=== PATIENT | male | born 1940 ===

== ENCOUNTER 2017-06-13 08:36 | Day surgery (SDC) | payer MEDICARE ==
[2017-05-01 08:36] VITALS: BMI 30.9
[2017-06-13] MEDS ORDERED: Gentamicin 160 MG in Sodium Chloride 0.9% 100 ML IVPB ONE (09:40)
[2017-06-13] MEDS ORDERED: Lactated Ringer's 1,000 ML IV ONE ×2 (10:22→10:48)
[2017-06-13] MEDS ORDERED: Ciprofloxacin 400mg/200ml D5W 400 MG/200 ML BAG IVPB ONE (10:22)
[2017-06-13] MEDS ORDERED: Propofol 10 mg/ml Inj (20 ML) ONE (10:25)
[2017-06-13] MEDS ORDERED: Midazolam 2 MG/2 ML VIAL ONE (10:26)
[2017-06-13] MEDS ORDERED: Lidocaine Hydrochloride 5 ML INJ ONE (10:40)
--- NOTE | 2017-06-13 10:45 | PCM.SURG1 ---
Surgeon's Initial Post Op Note - Surgeon's Notes Surgeon: Uday Knife Glazer: robb Type of Anesthesia: General Mask Anesthesia Administered By: staff Pre-Operative Diagnosis: BPH/HX BT Operative Findings: BT Post-Operative Diagnosis: BT Operation Performed: CYSTO BX fulg. Specimen/Specimens Removed: bX Estimated Blood Loss: EBL {In ML}: 0 Blood Products Given: N/A Drains Used: No Drains Post-Op Condition: Good Date of Surgery/Procedure: 06/13/17 Time of Surgery/Procedure: 10:44
[2017-06-13] MEDS ORDERED: HYDROmorphone 0.5 mg/0.5 ml ISec IVP PRN (10:50)
[2017-06-13 12:45] VITALS: RESP 16
[2017-06-13 13:27] VITALS: BP 148/56; PULSE 60; TEMP 97.3; O2SAT 97
--- NOTE | 2017-06-13 21:01 | OP ---
PROCEDURE DATE: 06/13/2017 PREOPERATIVE DIAGNOSIS: History of bladder tumor. 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 PROCEDURE: Cystopanendoscopy, biopsy and fulguration. DESCRIPTION OF PROCEDURE: As follows; prior to the procedure, detailed informed consent was obtained. The patient was apprised of all risks and complications of the procedure, alternate ways of following bladder tumor and he consented to this procedure and is willing to accept the risks. He was brought into room after receiving prophylactic antibiotics. He was draped and prepped in the usual manner. He was then cystoscoped with a #21 Storz panendoscope. The pendulous and membranous urethra was normal. The prostatic urethra showed evidence of previous resection or ablation. There was some residual prostatic tissue on the right side of the prostatic fossa. There were noted be 2 exophytic lesions in the prostatic fossa in the area of previous resection. These were biopsied and fulgurated. The patient tolerated this well. The biopsy will determine further therapy. The patient may need removal of this right-sided lesion in the future. Gilbert Frye MD
== END 2017-06-13 13:15 | disposition home or self-care (01) ==
LOC: C.SDS 08:36
PROVIDERS: ATTEND Urology
DX: N30.90 Cystitis, unspecified without hematuria (principal)
CPT/HCPCS: 52204; 82948; 88305; J0744; J1580; J7120

== ENCOUNTER 2017-10-28 19:12 | Emergency (ER) | payer MEDICARE, MEDICAID, OTHER ==
[2017-10-28 19:12] VITALS: BMI 30.9
[2017-10-28 19:38] VITALS: RESP 20
--- NOTE | 2017-10-28 19:59 | C.PDOC ---
History Of Present Illness 76 year old male presents to the emergency room for 3 day history of fever, cough, congestion, and sore throat. Reports cough is productive of white sputum. Has been taking [id number] cough and cold medications without significant improvement. Denies any chest pain or shortness of breath. PMD: Dr. Jarred Ramos Time Seen by Provider: 10/28/17 19:47 Chief Complaint (Nursing): Flu-like Symptoms History Per: Patient History/Exam Limitations: no limitations Onset/Duration Of Symptoms: Days (x3) Current Symptoms Are (Timing): Still Present Past Medical History Reviewed: Historical Data, Nursing Documentation, Vital Signs Vital Signs: Last Vital Signs Temp 100.5 F H 10/28/17 20:24 Pulse 88 10/28/17 20:24 Resp 20 10/28/17 20:24 BP 150/87 10/28/17 20:24 Pulse Ox 97 10/28/17 20:24 - Medical History PMH: Arthritis, Benign Prostatic Hyperplasia, GERD, HTN, Hypercholesterolemia, Hyperlipidemia, TIA (04/26/2015) Denies: Chronic Kidney Disease Surgical History: Endoscopy - [facility] Procedures CYSTOSCOPY NEC (10/01/13) ENDOSCP EXCISN OR DESTR OF LESION OR TIS URETHRA (03/27/13) OTH TRANSURETHRAL PROSTATECTOMY (03/12/13) TU BLADDER CLEARANCE (03/27/13) TU DESTRUC BLADD LES NEC (10/01/13) Family History: States: Unknown Family Hx - Social History Hx Tobacco Use: No Hx Alcohol Use: Yes (last drink 20yrs ago) Hx Substance Use: No - Immunization History Hx Influenza Vaccination: Yes Hx Pneumococcal Vaccination: Yes Review Of Systems Constitutional: Positive for: Fever ENT: Positive for: Nose Congestion, Throat Pain Cardiovascular: Negative for: Chest Pain Respiratory: Positive for: Cough, Sputum (white). Negative for: Shortness of Breath Physical Exam - Physical Exam Appears: Non-toxic, No Acute Distress Skin: Normal Color, Warm, Dry Head: Atraumatic, Normacephalic Eye(s): bilateral: Normal Inspection, PERRL, EOMI Ear(s): Bilateral: Normal Oral Mucosa: Moist Throat: Erythema (mild), No Exudate Neck: Normal ROM, Supple Chest: Symmetrical, No Tenderness Cardiovascular: Rhythm Regular Respiratory: Normal Breath Sounds, No Accessory Muscle Use, No Wheezing Gastrointestinal/Abdominal: Normal Exam, Soft, No Tenderness Back: Normal Inspection Extremity: Normal ROM, No Deformity Neurological/Psych: Oriented x3, Normal Speech ED Course And Treatment O2 Sat by Pulse Oximetry: 96 (RA) Pulse Ox Interpretation: Normal Medical Decision Making Medical Decision Making: Initial Impression: 76 year old with cough and congestion Plan --Tylenol 650 mg --Chest x-ray 2004 CXR reviewed showing normal heart size. Mild right hilar prominence. No focal consolidation, pleural effusion, or pneumothorax. will order Zithromax PO Patient remained afebrile in no acute respiratory distress. Vital signs stable. Patient feels comfortable going home and will be discharged. Patient given follow up instructions. Instructed to return to ER if symptoms worsen or new symptoms arise. Disposition Counseled Patient/Family Regarding: Diagnosis, Need For Followup, Rx Given - Disposition Referrals: Jarred Ramos MD [Medical Doctor] - Disposition: HOME/ ROUTINE Disposition Time: 20:20 Condition: GOOD Additional Instructions: Your prescription was sent to [facility] pharmacy Take antibiotic daily and take cough medicine as needed Take Tylenol or Motrin alternating every 4-6 hours for Fever 100.4F or higher. Rest and drink plenty of fluids. Follow up with your primary medical doctor or clinic in 2-5 days for further evaluation. Return to the emergency department at any time if symptoms persist or worsen. Brito receta fue enviada a la farmacia [facility] [place] antibiticos a diario y tome medicamentos para la tos segn sea necesario [place] Tylenol o Motrin alternando cada 4-6 horas para Fiebre 100.4F o superior. Descansa y precious muchos lquidos. Mckay un seguimiento con brito mdico primario o clnica en 2-5 hdez para marlena evaluacin adicional. Regrese al departamento de emergencia en cualquier momento si los sntomas persisten o empeoran. 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 - Scribe Statement The provider has reviewed the documentation as recorded by the Scribe (Harmony Glez) All medical record entries made by the Scribe were at my direction and personally dictated by me. I have reviewed the chart and agree that the record accurately reflects my personal performance of the history, physical exam, medical decision making, and the department course for this patient. I have also personally directed, reviewed, and agree with the discharge instructions and disposition.
[2017-10-28 20:28] VITALS: BP 150/87; PULSE 88; TEMP 100.5
[2017-10-28 22:23] VITALS: O2SAT 96
--- NOTE | 2017-10-29 10:51 | RAD ---
HISTORY: cough COMPARISON: Comparison chest 10/29/2015 TECHNIQUE: Chest PA and lateral FINDINGS: LUNGS: Bibasilar atelectasis versus developing lower lobe infiltrates. PLEURA: No significant pleural effusion identified. No pneumothorax apparent. CARDIOVASCULAR: Cardiomegaly. OSSEOUS STRUCTURES: Mild multilevel degenerative spondylosis of the thoracic spine VISUALIZED UPPER ABDOMEN: Normal. OTHER FINDINGS: None. IMPRESSION: Bibasilar atelectasis versus developing lower lobe infiltrates. Follow-up radiographs following treatment recommended to assess resolution. Note that this report was placed in PA review folder for followup.
== END 2017-10-28 20:25 | disposition home or self-care (01) ==
LOC: C.ER 19:12
DX: J40 Bronchitis, not specified as acute or chronic (principal)

== ENCOUNTER 2018-03-08 20:21 | Inpatient (IN) | payer MEDICARE, OTHER ==
[2018-03-08 20:22] VITALS: BMI 31.2
[2018-03-08] MEDS ORDERED: Sodium Chloride 0.9% 1,000 ML IV ONE (21:26)
[2018-03-08] MEDS ORDERED: cefTRIAXone IV 1 gm in Dextros 50 ML IVPB ONE ×2 (21:29→21:45)
--- NOTE | 2018-03-08 21:41 | C.PDOC ---
History Of Present Illness 77 year old male with a Hx of diabetes presents to the ER with a complaint of soft tissue swelling and pain to the left lower leg. Patient states he was bitten by a dog 2 weeks ago and has not seen improvement of wound despite being on antibiotics. Denies fever, weakness, or numbness. Chief Complaint (Nursing): Abnormal Skin Integrity History Per: Patient History/Exam Limitations: no limitations Onset/Duration Of Symptoms: Days Current Symptoms Are (Timing): Still Present Location Of Injury: Left: Leg Quality Of Symptoms: Swollen Recent travel outside of the [place]: No Past Medical History Reviewed: Historical Data, Nursing Documentation, Vital Signs Vital Signs: Last Vital Signs Temp 98.4 F 03/08/18 21:07 Pulse 64 03/08/18 23:19 Resp 18 03/08/18 23:19 BP 130/56 L 03/08/18 23:19 Pulse Ox 97 03/08/18 23:19 - Medical History PMH: Arthritis, Benign Prostatic Hyperplasia, GERD, HTN, Hypercholesterolemia ( Hyperlipidermia), Hyperlipidemia, TIA (04/26/2015) Surgical History: Endoscopy - [facility] Procedures CYSTOSCOPY NEC (10/01/13) ENDOSCP EXCISN OR DESTR OF LESION OR TIS URETHRA (03/27/13) OTH TRANSURETHRAL PROSTATECTOMY (03/12/13) TU BLADDER CLEARANCE (03/27/13) TU DESTRUC BLADD LES NEC (10/01/13) Family History: States: No Known Family Hx - Social History Hx Tobacco Use: No Hx Alcohol Use: Yes (last drink 20yrs ago) Hx Substance Use: No - Immunization History Hx Influenza Vaccination: Yes Hx Pneumococcal Vaccination: Yes Review Of Systems Constitutional: Negative for: Fever, Chills Cardiovascular: Negative for: Chest Pain, Palpitations Respiratory: Negative for: Cough, Shortness of Breath Skin: Positive for: Other (Soft tissue swelling) Neurological: Negative for: Weakness, Numbness Physical Exam - Physical Exam Appears: Non-toxic Skin: Warm, Dry Head: Atraumatic, Normacephalic Eye(s): bilateral: Normal Inspection Oral Mucosa: Moist Neck: Normal, Supple Chest: Symmetrical, No Tenderness Cardiovascular: Rhythm Regular Respiratory: Normal Breath Sounds, No Rales, No Rhonchi, No Wheezing Gastrointestinal/Abdominal: Soft, No Tenderness Extremity: Capillary Refill (<2 seconds), Other (8x3cm area of soft tissue swelling to distal aspect of left lower leg, tender to touch, no fluctuant) Pulses: Left Dorsalis Pedis: Normal, Right Dorsalis Pedis: Normal Neurological/Psych: Oriented x3, Normal Speech, Normal Motor, Normal Sensation Gait: Steady ED Course And Treatment - Laboratory Results Result Diagrams: 03/08/18 21:38 03/08/18 21:38 O2 Sat by Pulse Oximetry: 97 (Room air) Pulse Ox Interpretation: Normal Progress Note: CT left lower extremity and blood work ordered. IV fluids and rocephin administered. Disposition Discussed With Dr.: Minesh Linder Jr. Doctor Will See Patient In The: Hospital Counseled Patient/Family Regarding: Diagnosis - Disposition Disposition: HOSPITALIZED Disposition Time: 00:06 Condition: STABLE Forms: [facility] (Zimbabwean) - Clinical Impression Clinical Impression: Cellulitis, Diabetes mellitus - Scribe Statement The provider has reviewed the documentation as recorded by the Scribamelia Dorsey All medical record entries made by the Scribe were at my direction and personally dictated by me. I have reviewed the chart and agree that the record accurately reflects my personal performance of the history, physical exam, medical decision making, and the department course for this patient. I have also personally directed, reviewed, and agree with the discharge instructions and disposition.
[2018-03-08 21:42] LABS: BASO # 0.1 K/uL (0.0-0.2); BASO % 1.1 % (0.0-2.0); EOS # 0.1 K/uL (0.0-0.7); EOS % 2.7 % (0.0-4.0); HEMOGLOBIN 13.7 g/dL (12.0-18.0); LYMPH # 1.8 K/uL (1.0-4.3); LYMPH % 32.8 % (20.0-40.0); MEAN CELL VOLUME 91.6 fL (80.0-94.0); MEAN CORPUSCULAR HEMOGLOBIN 31.5 pg (27.0-31.0); MEAN CORPUSCULAR HGB CONC 34.4 g/dL (33.0-37.0); MEAN PLATELET VOLUME 8.7 fL (7.2-11.7); MONO # 0.6 K/uL (0.0-0.8); MONO % 10.8 % (0.0-10.0); NEUT # 2.8 K/uL (1.8-7.0); NEUT % 52.6 % (50.0-75.0); RBC 4.36 Mil/uL (4.40-5.90); RED CELL DISTRIBUTION WIDTH 13.8 % (11.5-14.5); WHITE BLOOD COUNT 5.4 K/uL (4.8-10.8)
[2018-03-08] MEDS ORDERED: Sodium Chloride 0.9% 1,000 ML ONE (21:42)
[2018-03-08 22:04] LABS: ALB/GLOB RATIO 1.1 (1.0-2.1); ALBUMIN 4.2 g/dL (3.5-5.0); ALT/SGPT 33 U/L (21-72); AST/SGOT 25 U/L (17-59); BLOOD UREA NITROGEN 24 mg/dL (9-20); CALCIUM 9.7 mg/dl (8.6-10.4); GFR AFRICAN-AMERICAN > 60; GFR NON-AFRICAN AMERICAN > 60
[2018-03-08] MEDS ORDERED: Absorbable Gelatin Sponge Size 12-7 ONE (22:31)
--- NOTE | 2018-03-09 01:14 | CP.PCM.HP ---
History of Present Illness - History of Present Illness History of Present Illness: CC dog bite cellulitis HPI 77M presents with 2 weeks of redness after being bit by a house trained dog in [place]. Patient states he does not have fever, chills, nausea, vomiting, diarrhea. Patient denies any purulence, drainage. Patient states it is not painful. Patient was taking keflex by his PMD, but it was not working, the redness was getting worse, so patient came to emergency room. PMH diabetic, htn Surgery: none Social: denies smoking, etoh, illicit drug use Present on Admission - Present on Admission Any Indicators Present on Admission: No History of DVT/PE: No History of Uncontrolled Diabetes: No Urinary Catheter: No Decubitus Ulcer Present: No Review of Systems - Review of Systems All systems: reviewed and no additional remarkable complaints except Past Patient History - Infectious Disease Hx of Infectious Diseases: None - Past Medical History & Family History Past Medical History?: Yes - Past Social History Smoking Status: Never Smoked Alcohol: None Drugs: Denies - CARDIAC Hx Hypercholesterolemia: Yes (Hyperlipidermia) Hx Hypertension: Yes - PULMONARY Hx Respiratory Disorders: No - NEUROLOGICAL Hx Transient Ischemic Attacks (TIA): Yes (04/26/2015) - HEENT Hx HEENT Problems: No - RENAL Hx Chronic Kidney Disease: No - ENDOCRINE/METABOLIC Hx Endocrine Disorders: Yes Hx Diabetes Mellitus Type 2: Yes - HEMATOLOGICAL/ONCOLOGICAL Hx Blood Disorders: Yes Hx Cancer: Yes (TRANSITIONAL CELL CARCINOMA (BLADDER)) - INTEGUMENTARY Hx Dermatological Problems: No - MUSCULOSKELETAL/RHEUMATOLOGICAL Hx Arthritis: Yes - GASTROINTESTINAL Hx Gastrointestinal Disorders: Yes Hx Gastroesophageal Reflux: Yes Hx Hemorrhoids: Yes - GENITOURINARY/GYNECOLOGICAL Hx Genitourinary Disorders: Yes Hx Prostate Problems: Yes Other/Comment: HX: NEOPLASM OF BLADDER.(TRANSITIONAL CELL CARCINOMA) - PSYCHIATRIC Hx Substance Use: No - SURGICAL HISTORY Hx Surgeries: Yes Other/Comment: HX:CYSTO. HX:TURP - ANESTHESIA Hx Anesthesia: Yes Hx Anesthesia Reactions: No Hx Malignant Hyperthermia: No Meds Allergies/Adverse Reactions: Allergies Allergy/AdvReac Type Severity Reaction Status Date / Time No Known Allergies Allergy Verified 10/28/17 19:38 Physical Exam - Constitutional Appears: Non-toxic, No Acute Distress - Head Exam Head Exam: ATRAUMATIC, NORMAL INSPECTION, NORMOCEPHALIC - Eye Exam Eye Exam: EOMI, Normal appearance Pupil Exam: NORMAL ACCOMODATION, PERRL - ENT Exam ENT Exam: Mucous Membranes Moist, Normal Exam - Neck Exam Neck exam: Positive for: Normal Inspection - Respiratory Exam Respiratory Exam: Clear to Auscultation Bilateral, NORMAL BREATHING PATTERN. absent: Accessory Muscle Use - Cardiovascular Exam Cardiovascular Exam: REGULAR RHYTHM, +S1, +S2. absent: Bradycardia, Tachycardia - Extremities Exam Extremities exam: Positive for: full ROM. Negative for: pedal edema Additional comments: sharply demarcated erythema. eschar center no purulence, no weeping wound - Back Exam Back exam: FULL ROM. absent: CVA tenderness (L), CVA tenderness (R) - Neurological Exam Neurological exam: Alert, CN II-XII Intact, Oriented x3, Reflexes Normal - Psychiatric Exam Psychiatric exam: Normal Affect, Normal Mood - Skin Skin Exam: Dry, Normal Color, Warm Results - Vital Signs Recent Vital Signs: Last Vital Signs Temp 98.2 F 03/09/18 00:55 Pulse 60 03/09/18 00:55 Resp 18 03/09/18 00:55 BP 144/61 03/09/18 00:55 Pulse Ox 98 03/09/18 00:55 - Labs Result Diagrams: 03/08/18 21:38 03/08/18 21:38 Labs: Laboratory Results - last 24 hr 03/08/18 03/08/18 03/08/18 21:19 21:38 21:38 WBC 5.4 RBC 4.36 L Hgb 13.7 Hct 39.9 MCV 91.6 MCH 31.5 H MCHC 34.4 RDW 13.8 Plt Count 196 MPV 8.7 Neut % (Auto) 52.6 Lymph % (Auto) 32.8 [place] % (Auto) 10.8 H Eos % (Auto) 2.7 Baso % (Auto) 1.1 Neut # (Auto) 2.8 Lymph # (Auto) 1.8 [place] # (Auto) 0.6 Eos # (Auto) 0.1 Baso # (Auto) 0.1 Sodium 144 Potassium 4.1 Chloride 103 Carbon Dioxide 28 Anion Gap 17 BUN 24 H Creatinine 0.8 Est GFR ( Amer) > 60 Est GFR (Non-Af Amer) > 60 POC Glucose (mg/dL) 115 H Random Glucose 110 Calcium 9.7 Total Bilirubin 0.4 AST 25 ALT 33 Alkaline Phosphatase 135 H Total Protein 8.0 Albumin 4.2 Globulin 3.8 Albumin/Globulin Ratio 1.1 Assessment & Plan - Assessment and Plan (Free Text) Assessment: dog bite/cellulitis f/u CT soft tissue Augmentin 875 PO BID LR @ 150cc/hr DM accucheck achs continued home meds: metformin Prophylaxis Protonix 40 mg IVP QD Anayeli Cavanaugh DO PGY1 - Date & Time Date: 03/09/18 Time: 01:15
[2018-03-09] MEDS ORDERED: Dextrose 50% SYRINGE Inj (50 ml) IV PRN (01:22)
[2018-03-09] MEDS ORDERED: Glucagon Recombinant 1 mg Inj IM PRN (01:22)
[2018-03-09] MEDS: Lactated Ringer's 1,000 ML IV SCH ×2 (06:47→08:36)
[2018-03-09] MEDS ORDERED: Amoxicillin-Clav 875-125 mg Tab PO SCH (09:00)
[2018-03-09] MEDS ORDERED: Pantoprazole 40 mg EC Tab PO SCH (10:00)
[2018-03-09] MEDS ORDERED: Enoxaparin 40 mg Syringe SC SCH (10:00)
[2018-03-09] MEDS: Saccharomyces Boulardi 250 mg Cap PO SCH ×3 (10:59→17:22)
--- NOTE | 2018-03-09 11:55 | CT ---
PROCEDURE: CT left lower extremity HISTORY: infected wound -left lower leg/ r/o abscess COMPARISON: Not available TECHNIQUE: 2.5 mm contiguous axial sections were acquired through the left lower extremity, from the knee to the ankle. Sagittal and coronal images were reformatted from the axial scan. FINDINGS: In the region of concern along the lateral aspect of the mid tibia/fibula, as indicated by a radiopaque cutaneous marker, there is mild cutaneous thickening, nonspecific. There is mild stranding of the subcutaneous soft tissues. The findings may reflect a mild cellulitis. Please correlate clinically. There is no evidence of abscess. There is no mass or fluid collection. The underlying muscles are unremarkable in appearance. There is no osseous abnormality appreciated. There is no periosteal reaction or osseous erosion. IMPRESSION: No evidence of abscess. Possible cellulitis. No additional abnormality. Preliminary interpretation of this examination was reported by [facility] at 11:31 p.m. on 03/08/2018. There is concurrence of this report with the preliminary interpretation.
[2018-03-09 15:51] VITALS: BP 136/66; PULSE 66; RESP 20; TEMP 97.4; O2SAT 96
--- NOTE | 2018-03-09 18:51 | CP.PCM.DIS ---
Provider - Provider Date of Admission: 03/09/18 00:07 Attending physician: Minesh Linder Jr, MD Consults: none Time Spent in preparation of Discharge (in minutes): 45 Hospital Course - Lab Results Lab Results: Most Recent Lab Values WBC 5.4 K/uL (4.8-10.8) 03/08/18 21:38 RBC 4.36 Mil/uL (4.40-5.90) L 03/08/18 21:38 Hgb 13.7 g/dL (12.0-18.0) 03/08/18 21:38 Hct 39.9 % (35.0-51.0) 03/08/18 21:38 MCV 91.6 fL (80.0-94.0) 03/08/18 21:38 MCH 31.5 pg (27.0-31.0) H 03/08/18 21:38 MCHC 34.4 g/dL (33.0-37.0) 03/08/18 21:38 RDW 13.8 % (11.5-14.5) 03/08/18 21:38 Plt Count 196 K/uL (130-400) 03/08/18 21:38 MPV 8.7 fL (7.2-11.7) 03/08/18 21:38 Neut % (Auto) 52.6 % (50.0-75.0) 03/08/18 21:38 Lymph % (Auto) 32.8 % (20.0-40.0) 03/08/18 21:38 Archer % (Auto) 10.8 % (0.0-10.0) H 03/08/18 21:38 Eos % (Auto) 2.7 % (0.0-4.0) 03/08/18 21:38 Baso % (Auto) 1.1 % (0.0-2.0) 03/08/18 21:38 Neut # (Auto) 2.8 K/uL (1.8-7.0) 03/08/18 21:38 Lymph # (Auto) 1.8 K/uL (1.0-4.3) 03/08/18 21:38 Archer # (Auto) 0.6 K/uL (0.0-0.8) 03/08/18 21:38 Eos # (Auto) 0.1 K/uL (0.0-0.7) 03/08/18 21:38 Baso # (Auto) 0.1 K/uL (0.0-0.2) 03/08/18 21:38 Sodium 144 mmol/L (132-148) 03/08/18 21:38 Potassium 4.1 mmol/L (3.6-5.2) 03/08/18 21:38 Chloride 103 mmol/L (98-107) 03/08/18 21:38 Carbon Dioxide 28 mmol/L (22-30) 03/08/18 21:38 Anion Gap 17 (10-20) 03/08/18 21:38 BUN 24 mg/dL (9-20) H 03/08/18 21:38 Creatinine 0.8 mg/dL (0.8-1.5) 03/08/18 21:38 Est GFR ( Amer) > 60 03/08/18 21:38 Est GFR (Non-Af Amer) > 60 03/08/18 21:38 POC Glucose (mg/dL) 109 mg/dL (65-110) 03/09/18 16:13 Random Glucose 110 mg/dL (75-110) 03/08/18 21:38 Hemoglobin A1c 6.6 % (4.2-6.5) H 03/09/18 11:11 Calcium 9.7 mg/dl (8.6-10.4) 03/08/18 21:38 Total Bilirubin 0.4 mg/dL (0.2-1.3) 03/08/18 21:38 AST 25 U/L (17-59) 03/08/18 21:38 ALT 33 U/L (21-72) 03/08/18 21:38 Alkaline Phosphatase 135 U/L (38-126) H 03/08/18 21:38 Total Protein 8.0 g/dL (6.3-8.3) 03/08/18 21:38 Albumin 4.2 g/dL (3.5-5.0) 03/08/18 21:38 Globulin 3.8 gm/dL (2.2-3.9) 03/08/18 21:38 Albumin/Globulin Ratio 1.1 (1.0-2.1) 03/08/18 21:38 - Hospital Course Hospital Course: On Admission: 77M presents with 2 weeks of redness after being bit by a house trained dog in [place]. Patient states he does not have fever, chills, nausea, vomiting, diarrhea. Patient denies any purulence, drainage. Patient states it is not painful. Patient was taking keflex by his PMD, but it was not working, the redness was getting worse, so patient came to emergency room. Hospital Course: Patient was treated with PO Augmentin. No pain at the site. LE CT did not show any collection. Dog was confirmed no rabies. Tetanus up to date. Patient discharged with 10 days of PO augmentin Discharge Exam - Head Exam Head Exam: ATRAUMATIC, NORMAL INSPECTION, NORMOCEPHALIC - Eye Exam Eye Exam: EOMI, Normal appearance, PERRL Pupil Exam: NORMAL ACCOMODATION, PERRL - Respiratory Exam Respiratory Exam: NORMAL BREATHING PATTERN, UNREMARKABLE - Cardiovascular Exam Cardiovascular Exam: REGULAR RHYTHM. absent: Tachycardia - GI/Abdominal Exam GI & Abdominal Exam: Normal Bowel Sounds, Soft, Unremarkable. absent: Distended , Tenderness - Extremities Exam Additional comments: On lateral portion of lower left leg is small area of erythema. No pain or increased warmth. No fluctuance. - Neurological Exam Neurological exam: Alert, CN II-XII Intact, Normal Gait, Oriented x3, Reflexes Normal - Psychiatric Exam Psychiatric exam: Normal Affect, Normal Mood - Skin Skin Exam: Dry, Intact, Normal Color, Warm Discharge Plan - Discharge Medications Prescriptions: Amoxicillin/Clavulanate [Augmentin 875 MG-125 MG Tab] 1 tab PO Q12H #20 tab Saccharomyces Boulardi [Florastor] 250 mg PO BID 20 Days cap - Follow Up Plan Condition: STABLE Disposition: HOME/ ROUTINE Instructions: Saccharomyces boulardii, Carbohydrate Counting Diet, Diabetes Diet , Cellulitis (Skin Infection), Adult (DC), Amoxicillin and Clavulanate, Cellulitis (DC), Cellulitis (GEN) Additional Instructions: Please follow up with your regular doctor in 7-10 days. Please continue to take your home medications. Please take Augmentin 875 two times per day with breakfast and dinner for 2 days. Please take Floraster 2 hours after breakfast and 2 hours before dinner for 20 days. Please come back to the ED if symptoms return. Referrals: Minesh Linder Jr., MD [Medical Doctor] -
== END 2018-03-09 18:23 | disposition home or self-care (01) | DRG 603 ==
LOC: C.ER 20:21 → C.9E 03-09 00:07 → C.6T 03-09 00:34
PROVIDERS: ADMIT Internal Medicine; ATTEND Internal Medicine
DX: L03.116 Cellulitis of left lower limb (principal); E78.5 Hyperlipidemia, unspecified; E78.00 Pure hypercholesterolemia, unspecified; I10 Essential (primary) hypertension; N40.0 Benign prostatic hyperplasia without lower urinary tract symptoms; Z85.51 Personal history of malignant neoplasm of bladder; Z86.73 Personal history of transient ischemic attack (TIA), and cerebral infarction without residual deficits; E11.9 Type 2 diabetes mellitus without complications; Z79.4 Long term (current) use of insulin

== ENCOUNTER 2018-04-15 07:32 | Emergency (ER) | payer MEDICARE, OTHER ==
[2018-04-15 07:32] VITALS: BMI 31.2
[2018-04-15 07:43] VITALS: O2SAT 99
--- NOTE | 2018-04-15 07:56 | C.PDOC ---
History Of Present Illness 77 year old male presents to ED for evaluation of sore throat for the last 2 days. +dry cough, runny nose. Denies history of asthma, or smoking. Denies fever , chest pain, shortness of breath, or dyspnea on exertion. SORE THROAT X 2 DAYS. NO FEVER. +DRY COUGH, RUNNY NOSE. DENIES HO ASTHMA, SMOKING. NO CP, SOB/VALERA EXAM NARD HEENT THROAT CLEAR; NOSE CLEAR LUNGS CTA B/L NO W/R/R Time Seen by Provider: 04/15/18 07:50 Chief Complaint (Nursing): Cough, Cold, Congestion History Per: Patient History/Exam Limitations: no limitations Onset/Duration Of Symptoms: Days Current Symptoms Are (Timing): Still Present Past Medical History Reviewed: Historical Data, Nursing Documentation, Vital Signs Vital Signs: Last Vital Signs Temp 98.3 F 04/15/18 07:38 Pulse 68 04/15/18 07:38 Resp 18 04/15/18 07:38 BP 154/69 H 04/15/18 07:38 Pulse Ox 99 04/15/18 08:30 - Medical History PMH: Arthritis, Benign Prostatic Hyperplasia, GERD, HTN, Hypercholesterolemia ( Hyperlipidermia), Hyperlipidemia, TIA (04/26/2015) Denies: Chronic Kidney Disease Surgical History: Endoscopy - [facility] Procedures CYSTOSCOPY NEC (10/01/13) ENDOSCP EXCISN OR DESTR OF LESION OR TIS URETHRA (03/27/13) OTH TRANSURETHRAL PROSTATECTOMY (03/12/13) TU BLADDER CLEARANCE (03/27/13) TU DESTRUC BLADD LES NEC (10/01/13) Family History: States: Unknown Family Hx - Social History Hx Tobacco Use: No Hx Alcohol Use: No Hx Substance Use: No - Immunization History Hx Influenza Vaccination: Yes Hx Pneumococcal Vaccination: Yes Review Of Systems Except As Marked, All Systems Reviewed And Found Negative. Constitutional: Negative for: Fever, Chills ENT: Positive for: Nose Discharge (runny nose), Throat Pain. Negative for: Ear Pain Cardiovascular: Negative for: Chest Pain, Palpitations Respiratory: Positive for: Cough. Negative for: Shortness of Breath, SOB with Excertion Physical Exam - Physical Exam Appears: Non-toxic, No Acute Distress Skin: Normal Color, Warm, Dry Head: Atraumatic, Normacephalic Eye(s): bilateral: Normal Inspection, PERRL, EOMI Ear(s): Bilateral: Normal Nose: Normal, No Discharge Oral Mucosa: Moist Tongue: Normal Appearing Lips: Normal Appearing Throat: Normal, No Erythema, No Exudate, No Drooling Neck: Normal ROM, Supple Cardiovascular: Rhythm Regular, No Murmur Respiratory: Normal Breath Sounds, No Rales, No Rhonchi, No Wheezing Gastrointestinal/Abdominal: Soft, No Tenderness Extremity: Normal ROM Neurological/Psych: Oriented x3, Normal Speech ED Course And Treatment O2 Sat by Pulse Oximetry: 99 (RA) Pulse Ox Interpretation: Normal - Radiology CXR: Interpreted by Me CXR Interpretation: Yes: Infiltrates (?R SIDED INFIL) Medical Decision Making Medical Decision Making: Plan: CXR Motrin Tylenol Tessalon Perles Disposition Counseled Patient/Family Regarding: Studies Performed, Diagnosis, Need For Followup, Rx Given - Disposition Referrals: YOUR,PMD [Other] Disposition: HOME/ ROUTINE Disposition Time: 08:48 Condition: GOOD Prescriptions: Azithromycin 250 mg PO DAILY #6 tab Benzonatate [Tessalon Perles] 200 mg PO TID PRN #15 sgl PRN Reason: Cough Ibuprofen [Motrin] 600 mg PO Q6 #30 tab Instructions: Acute Bronchitis, Adult (DC) Forms: [employer] (Bahamian) Print Language: JAMAICAN - Clinical Impression Clinical Impression: Bronchitis - Scribe Statement The provider has reviewed the documentation as recorded by the Scribe KP All medical record entries made by the Scribe were at my direction and personally dictated by me. I have reviewed the chart and agree that the record accurately reflects my personal performance of the history, physical exam, medical decision making, and the department course for this patient. I have also personally directed, reviewed, and agree with the discharge instructions and disposition.
[2018-04-15 09:24] VITALS: BP 145/70; PULSE 72; RESP 16; TEMP 98
--- NOTE | 2018-04-15 09:51 | RAD ---
Date of service: 04/15/2018 HISTORY: COUGH COMPARISON: Chest radiographs 10/28/2017. TECHNIQUE: Chest PA and lateral FINDINGS: LUNGS: Mild mammillation right hemidiaphragm is reiterated. Mildly coarsened bronchovascular markings are stable at the medial bilateral bases. No interval acute pulmonary disease appreciated nevertheless. PLEURA: No significant pleural effusion identified. No pneumothorax apparent. CARDIOVASCULAR: Stable cardiomegaly. No pulmonary vascular congestion. OSSEOUS STRUCTURES: No significant abnormalities. VISUALIZED UPPER ABDOMEN: Normal. OTHER FINDINGS: None. IMPRESSION: Stable cardiomegaly. No acute cardiopulmonary disease appreciated.
== END 2018-04-15 09:23 | disposition home or self-care (01) ==
LOC: C.ER 07:32
DX: J40 Bronchitis, not specified as acute or chronic (principal)

== ENCOUNTER 2018-07-12 08:08 | Emergency (ER) | payer MEDICARE, OTHER ==
[2018-07-12 08:17] VITALS: BMI 33.5
[2018-07-12 08:21] VITALS: BP 136/63; PULSE 61; RESP 17; TEMP 98.5; O2SAT 99
--- NOTE | 2018-07-12 08:40 | C.PDOC ---
History Of Present Illness 77 y/o male presents to the ED complaining of 3 days of pain to right posterior hip area. [place] he pulled a muscle when taking his shoes off 3 days ago. Pain is described as digitally and positionally reproducible. Otherwise he denies any abdominal pain, nausea, vomiting, fever, chills, numbness, tingling, or extremity weakness. Time Seen by Provider: 07/12/18 08:28 Chief Complaint (Nursing): Back Pain History Per: Patient History/Exam Limitations: no limitations Onset/Duration Of Symptoms: Days Current Symptoms Are (Timing): Still Present Associated Symptoms: None Exacerbating Factor(s): Movement Past Medical History Reviewed: Historical Data, Nursing Documentation, Vital Signs Vital Signs: Last Vital Signs Temp 98.5 F 07/12/18 08:15 Pulse 61 07/12/18 08:15 Resp 17 07/12/18 08:15 BP 136/63 07/12/18 08:15 Pulse Ox 99 07/12/18 08:15 - Medical History PMH: Arthritis, Benign Prostatic Hyperplasia, GERD, HTN, Hypercholesterolemia (Hyperlipidermia), Hyperlipidemia, TIA (04/26/2015) Denies: Chronic Kidney Disease Surgical History: Endoscopy - [facility] Procedures CYSTOSCOPY NEC (10/01/13) ENDOSCP EXCISN OR DESTR OF LESION OR TIS URETHRA (03/27/13) OTH TRANSURETHRAL PROSTATECTOMY (03/12/13) TU BLADDER CLEARANCE (03/27/13) TU DESTRUC BLADD LES NEC (10/01/13) Family History: States: Unknown Family Hx - Social History Hx Tobacco Use: No Hx Alcohol Use: No (Former) Hx Substance Use: No - Immunization History Hx Influenza Vaccination: Yes (2018) Hx Pneumococcal Vaccination: Yes Review Of Systems Constitutional: Negative for: Fever, Chills Cardiovascular: Negative for: Chest Pain, Palpitations Respiratory: Negative for: Shortness of Breath Gastrointestinal: Negative for: Nausea, Vomiting, Abdominal Pain Genitourinary: Negative for: Dysuria, Hematuria Musculoskeletal: Positive for: Back Pain (Pain to right posterior hip/sacral area). Negative for: Arm Pain, Leg Pain Neurological: Negative for: Weakness, Numbness, Incoordination Physical Exam - Physical Exam Appears: Non-toxic, No Acute Distress Skin: Normal Color, Warm, Dry Head: Atraumatic, Normacephalic Eye(s): bilateral: Normal Inspection, PERRL, EOMI Neck: Normal ROM Chest: Symmetrical Cardiovascular: Rhythm Regular, No Murmur Respiratory: Normal Breath Sounds, No Accessory Muscle Use Gastrointestinal/Abdominal: Bowel Sounds (normal), Soft, No Tenderness, No Distention, No Guarding Back: No CVA Tenderness, No Vertebral Tenderness, No Decreased ROM Extremity: Normal ROM, Tenderness (Digitally reproducible pain to the right posterior superior iliac crest, and lateral abdominal oblique muscle), No Deformity, No Swelling Extremity: Bilateral: Atraumatic, Normal Color And Temperature Neurological/Psych: Oriented x3, Normal Speech ED Course And Treatment O2 Sat by Pulse Oximetry: 99 (RA) Pulse Ox Interpretation: Normal Medical Decision Making Medical Decision Making: Plan: * motrin PO Impression: mild muscle strain R lateral abdominal oblique muscle from bending over to tie shoes 2-3 days ago. no renal nor intra-abdominal s/s. Ice pack/NSAIDS given and educated. Disposition Doctor Will See Patient In The: Office Counseled Patient/Family Regarding: Studies Performed, Diagnosis - Disposition Referrals: Jarred Ramos MD [Medical Doctor] - Disposition: HOME/ ROUTINE Disposition Time: 08:39 Condition: GOOD Additional Instructions: [place] 1/2 hora por hora, nada caliente Ibuprofeno/advil/motrin 400 mg cada 6 horas marilu necessario Babs tratamientos calientes- se hace mas inflammado Sigue con Dr. Ramos Instructions: Muscle Strain Forms: [facility] (Turkish) Print Language: GERMAN - Clinical Impression Clinical Impression: Muscle strain - Scribe Statement The provider has reviewed the documentation as recorded by the Scribe (Harmony Glez) Provider Attestation: All medical record entries made by the Scribe were at my direction and personally dictated by me. I have reviewed the chart and agree that the record accurately reflects my personal performance of the history, physical exam, medical decision making, and the department course for this patient. I have also personally directed, reviewed, and agree with the discharge instructions and disposition.
== END 2018-07-12 09:03 | disposition home or self-care (01) ==
LOC: C.ER 08:08
DX: S39.011A Strain of muscle, fascia and tendon of abdomen, initial encounter (principal); X50.0XXA Overexertion from strenuous movement or load, initial encounter; Y92.9 Unspecified place or not applicable

== ENCOUNTER 2018-11-29 09:00 | Emergency (ER) | payer MEDICARE, OTHER ==
[2018-11-29 09:00] VITALS: BMI 31.2
--- NOTE | 2018-11-29 10:34 | C.PDOC ---
History Of Present Illness 77 y/o male presents to the ER complaining of burning on urination and urinary frequency. Patient states that he has history of frequent UTI's. Patient reports that he had recent US which showed bladder tumor. He notes that he has a urologist . Patient is also complaining of right eye redness. Denies having fever,chills, nausea, vomiting, abdominal pain, and hematuria. Time Seen by Provider: 11/29/18 09:41 Chief Complaint (Nursing): Male Genitourinary History Per: Patient History/Exam Limitations: no limitations Onset/Duration Of Symptoms: Days Current Symptoms Are (Timing): Still Present Severity: Moderate Past Medical History Reviewed: Historical Data, Nursing Documentation, Vital Signs Vital Signs: Last Vital Signs Temp 98.1 F 11/29/18 09:19 Pulse 71 11/29/18 09:19 Resp 18 11/29/18 09:19 BP 132/63 11/29/18 09:19 Pulse Ox 96 11/29/18 09:19 - Medical History PMH: Arthritis, Benign Prostatic Hyperplasia, GERD, HTN, Hypercholesterolemia (Hyperlipidermia), Hyperlipidemia, TIA (04/26/2015) Denies: Chronic Kidney Disease Surgical History: Endoscopy - [facility] Procedures CYSTOSCOPY NEC (10/01/13) ENDOSCP EXCISN OR DESTR OF LESION OR TIS URETHRA (03/27/13) OTH TRANSURETHRAL PROSTATECTOMY (03/12/13) TU BLADDER CLEARANCE (03/27/13) TU DESTRUC BLADD LES NEC (10/01/13) Family History: States: No Known Family Hx - Social History Hx Tobacco Use: No Hx Alcohol Use: No (Former) Hx Substance Use: Yes - Immunization History Hx Influenza Vaccination: Yes (2018) Hx Pneumococcal Vaccination: Yes Review Of Systems Except As Marked, All Systems Reviewed And Found Negative. Constitutional: Negative for: Fever, Chills Eyes: Positive for: Redness (right eye redness) Genitourinary: Positive for: Dysuria, Frequency. Negative for: Hematuria Physical Exam - Physical Exam Appears: Non-toxic Skin: Normal Color, Warm, Dry, No Rash Head: Atraumatic, Normacephalic Eye(s): bilateral: PERRL, EOMI, right: Other (subconjunctival hemorrhage, No foreign bodies or discharge), left: Normal Inspection Nose: Normal Oral Mucosa: Moist Neck: Normal ROM, Supple Chest: Symmetrical Cardiovascular: Rhythm Regular Respiratory: Normal Breath Sounds, No Rales, No Rhonchi, No Wheezing Gastrointestinal/Abdominal: Normal Exam, Soft, No Tenderness, No Guarding, No Rebound Back: Normal Inspection, No CVA Tenderness Extremity: Normal ROM, No Swelling Neurological/Psych: Oriented x3, Normal Speech, Normal Motor Gait: Steady ED Course And Treatment O2 Sat by Pulse Oximetry: 96 (RA) Pulse Ox Interpretation: Normal Medical Decision Making Medical Decision Making: Plan: --UA --Urine Culture The patient was treated for UTI and discharged home. Disposition - Disposition Referrals: Gilbert Frye Jr., MD [Staff Provider] - Disposition: HOME/ ROUTINE Disposition Time: 11:46 Condition: GOOD Additional Instructions: Follow up with the medical doctor within 1-2 days. Return if worsened Prescriptions: Ciprofloxacin HCl [Cipro] 500 mg PO BID #19 tab Instructions: Urinary Tract Infection, Adult (DC) Forms: [employer] (Welsh) - Clinical Impression Clinical Impression: Prophylactic measure, UTI (urinary tract infection) - PA / RESOURCE RECOVERY ENGINEER / Resident Statement MD/DO has reviewed & agrees with the documentation as recorded. - Scribe Statement The provider has reviewed the documentation as recorded by the Erma Lawrence Provider Attestation All medical record entries made by the Jenibe were at my direction and personally dictated by me. I have reviewed the chart and agree that the record accurately reflects my personal performance of the history, physical exam, medi tiff decision making, and the department course for this patient. I have also personally directed, reviewed, and agree with the discharge instructions and disposition.
[2018-11-29 11:05] LABS: SQUAMOUS EPITHIAL 1 /hpf (0-5); URINE BACTERIA RARE (<OCC); URINE BILIRUBIN NEGATIVE (NEGATIVE); URINE BLOOD 2+ (NEGATIVE); URINE CLARITY Hazy (Clear); URINE COLOR Yellow (YELLOW); URINE GLUCOSE (UA) NORMAL (Normal); URINE LEUKOCYTE ESTERASE 3+ Leu/uL (Negative); URINE PROTEIN NEGATIVE (NEGATIVE); URINE UROBILINOGEN NORMAL mg/dL (0.2-1.0)
[2018-11-29 12:10] VITALS: BP 124/63; PULSE 61; RESP 16; TEMP 98.7
[2018-11-30 19:13] VITALS: O2SAT 96
== END 2018-11-29 12:15 | disposition home or self-care (01) ==
LOC: C.ER 09:00
DX: N39.0 Urinary tract infection, site not specified (principal); Z29.9 Encounter for prophylactic measures, unspecified

== ENCOUNTER 2018-11-30 09:05 | Outpatient (CLI) | payer MEDICARE, OTHER | END 2018-11-30 09:06 | disposition home or self-care (01) | LOC: C.PAT 09:05 | DX: R31.9 Hematuria, unspecified (principal) ==

== ENCOUNTER 2018-12-10 10:03 | Day surgery (SDC) | payer MEDICARE, OTHER ==
[2018-11-30 09:15] VITALS: BMI 29.9
[2018-12-10] MEDS ORDERED: Ciprofloxacin 400mg/200ml D5W 400 MG/200 ML BAG IVPB ONE (13:34)
[2018-12-10] MEDS ORDERED: Gentamicin 80 mg in 0.9% NS 160 MG/200 ML BAG IVPB ONE (13:34)
[2018-12-10] MEDS ORDERED: Iohexol 240 (50 ml) ONE (13:35)
[2018-12-10] MEDS ORDERED: Lidocaine 2% Jelly (Uro-Jet) ONE (13:35)
[2018-12-10] MEDS ORDERED: Midazolam 2 MG/2 ML VIAL ONE (13:41)
[2018-12-10] MEDS ORDERED: Propofol 10 mg/ml Inj (20 ML) ONE (13:41)
[2018-12-10] MEDS ORDERED: Lidocaine Hydrochloride 5 ML INJ ONE (13:41)
[2018-12-10] MEDS ORDERED: HYDROmorphone 0.5 mg/0.5 ml ISec IVP PRN (14:21)
--- NOTE | 2018-12-10 14:28 | PCM.SURG1 ---
Surgeon's Initial Post Op Note - Surgeon's Notes Surgeon: adrianne Hand Trimmer: robb Type of Anesthesia: General LMA Anesthesia Administered By: Staff Pre-Operative Diagnosis: hX BT/HEMATURIA/ABNORMAL CYTOLOGY Operative Findings: SUPER FICIAL BLADDER LESION RO CIS Post-Operative Diagnosis: SAME Operation Performed: cystobx/fulguration Specimen/Specimens Removed: bx Estimated Blood Loss: EBL {In ML}: 0 Blood Products Given: N/A Drains Used: No Drains Post-Op Condition: Good Date of Surgery/Procedure: 12/10/18 Time of Surgery/Procedure: 14:28
[2018-12-10 15:22] VITALS: PULSE 77; RESP 20; TEMP 97.4; O2SAT 98
[2018-12-10 15:54] VITALS: BP 126/67
--- NOTE | 2018-12-11 00:59 | OP ---
PROCEDURE DATE: 12/10/2018 PREOPERATIVE DIAGNOSES: Hematuria, abnormal urine and cytology, and history of bladder tumor. POSTOPERATIVE DIAGNOSES: Hematuria, abnormal urine and cytology, history of bladder tumor, and erythematous areas in the bladder, possible carcinoma in situ. DESCRIPTION OF PROCEDURE: As follows: The patient was asked to sign a detailed informed consent prior to the procedure explaining all the risks, complications, and alternative methods of managing hematuria, history of bladder tumor and positive urine cytology. The patient was brought in the room and a time-out was taken according to the rules and regulations of [facility]. The patient was draped and prepped in the usual manner, given prophylactic antibiotics, and cystoscoped with a #21 Storz panendoscope. The pendulous and membranous urethra was normal. The prostatic urethra showed trilobar hypertrophy of the prostate with moderate outlet obstruction. The bladder was entered atraumatically and the bladder was inspected with both 30-and 70-degree lens. There were two erythematous areas on the bladder inferior and medial to the right ureteral orifice and superior and lateral to the left ureteral orifice. Each was biopsied and fulgurated with care not to injure the ureteral orifice, not occurred. The remainder of the bladder appeared clear except for compensatory trabeculation of bladder, +1. Both ureteral orifices had clear efflux. The patient tolerated this procedure well. He will be sent home. We recommended the patient to have upper tract studies since he had a positive cytology and these lesions appear small and low grade. Gilbert Frye MD
== END 2018-12-10 15:58 | disposition home or self-care (01) ==
LOC: C.SDS 10:03
PROVIDERS: ATTEND Urology
DX: N30.91 Cystitis, unspecified with hematuria (principal); Z85.51 Personal history of malignant neoplasm of bladder; N32.89 Other specified disorders of bladder; N40.1 Benign prostatic hyperplasia with lower urinary tract symptoms; N13.8 Other obstructive and reflux uropathy; E11.9 Type 2 diabetes mellitus without complications; I10 Essential (primary) hypertension
CPT/HCPCS: 52204; 82948; 88305; J0744; J1580

== ENCOUNTER 2019-02-12 07:50 | Outpatient (CLI) | payer MEDICARE, OTHER | END 2019-02-12 07:51 | disposition home or self-care (01) | LOC: C.VASC 07:50 ==